=== PATIENT | male | born 1965 | race Caucasian/White ===

== ENCOUNTER 2025-02-14 02:55 | Day surgery (SDC) | payer BC, SELFPAY ==
[2025-01-28 13:56] VITALS: BMI 31.7
[2025-02-14 11:03] VITALS: BP 133/97; PULSE 85; RESP 18; TEMP 36.1; O2SAT 98; BMI 30.9
[2025-02-14] MEDS: LACTATED RINGERS 1,000 ML 150 ML IV CONT (11:11)
[2025-02-14 12:03] VITALS: BP 128/87; PULSE 70; RESP 14; O2SAT 99
--- NOTE | 2025-02-14 12:04 | WPDANESEPPF ---
Anes - Initial Pre Proc Eval Procedure: Operation Date: 02/14/25 12:30 Proposed Procedures p Screening Colonoscopy - Clark James MD Date/Time: 02/14/25 12:04 Surgeon: Clark James MD Pre Op Diagnosis: Polyp of colon Patient Data Age: 59 Gender: M Height: 1.85 m Weight: 106.4 kg Last Vital Signs Temp 97 F L 02/14/25 11:03 Pulse 85 02/14/25 11:03 Resp 18 02/14/25 11:03 BP 133/97 H 02/14/25 11:03 Pulse Ox 98 02/14/25 11:03 O2 Del Method Room Air 02/14/25 11:03 Allergies Allergy/AdvReac Type Severity Reaction Status Date / Time No Known Allergies Allergy Verified 02/14/25 11:02 Home Medications ?Medication ?Instructions ?Recorded ?Confirmed ?Type multivitamin 1 tablet PO DAILY 02/14/25 02/14/25 History Patient hx anesthesia problems: none Family hx anesthesia problems: none Results Review: All pre-operative results and documents have been reviewed as part of the pre-operative evaluation. [facility] Social History Social History Smoking status: Never smoker Alcohol intake: never Substance use: never Substance use type: does not use Living arrangements: with family Spiritual care concerns: No Anes - Eval Final PreProcedure Day of Procedure 02/14/25 12:04 Patient weight: obese Lungs: normal air movement Airway: Mallampati scale class II Neurological: alert and oriented Last oral intake: >/= 8 hours ASA classification: II Emergent: no Anesthetic plan: proceed Anesthesia type and monitoring: general GIVS and standard monitoring Results Review: All pre-operative results and documents have been reviewed as part of the pre-operative evaluation. BMI 31. Informed Consent: The patient's anesthetic plan and its attendant risks and benefits were discussed with the patient/family/POA. Questions were solicited and answers provided to the satisfaction of the patient/family/POA.
--- NOTE | 2025-02-14 12:27 | P.HP_ITS ---
History of Present Illness History of Present Illness Consent: Risks, benefits, and alternatives have been discussed and questions answered. Patient agrees to proceed with procedure. Chief complaint: Polyp of colon Narrative: Doug Alvares is a 59 year old male here for colonoscopy, father had colon cancer Review of Systems Review of Systems: All systems reviewed & are unremarkable except as noted in HPI and below PMFSH Past Medical History Medical History (Updated 02/14/25 @ 12:28 by Clark James MD) Family history of colon cancer in father Social History Social History Smoking status: Never smoker Alcohol intake: never Substance use: never Substance use type: does not use Living arrangements: with family Spiritual care concerns: No Meds Home Medications and Allergies Home Medications ?Medication ?Instructions ?Recorded ?Confirmed ?Type multivitamin 1 tablet PO DAILY 02/14/25 1 04/17/24 History Allergies Allergy/AdvReac Type Severity Reaction Status Date / Time No Known Allergies Allergy Verified 02/14/25 11:02 Vital Signs Vital Signs - 24 hr 02/14/25 11:03 Temperature 97 F L Pulse Rate 85 Respiratory Rate 18 Blood Pressure 133/97 H Pulse Oximetry 98 Oxygen Delivery Room Air Exam Const: General: comfortable and no acute distress HENMT: Face/Nose/Sinus: Normal nares present Eyes: General: appearance normal, both eyes and all related structures Neck: Neck: no JVD Resp: Auscultation: clear to auscultation bilaterally Cardio: Rate: regular rate Rhythm: regular rhythm GI: Inspection: non-distended GI Palp: Yes Soft to palpation Skin: General skin exam: normal color Psych: Mental Status: mental status grossly normal Assessment and Plan Assessment and plan (1) Family history of colon cancer in father: Code(s): Z80.0 - Family history of malignant neoplasm of digestive organs Status: Acute Assessment and Plan: colonoscopy
--- NOTE | 2025-02-14 12:39 | S_PTH ---
PATIENT: Doug Alvares LOC: [facility]#:[id number] AGE/SX: 59/M ROOM: RE02/14/[address]: Clark James MD : 1965 BED: DIS: 02/14/2025 SPEC #: [id number] RECD: 02/14/25 13:55 STATUS: LU REVasiliy #: [id number] RUT: 02/14/25 12:[address]: Clark James DEPT: [facility] Surgical RECD BY: Palak Leach ENTERED: 02/14/25 13:55 SP TYPE: Surgical OTHR DR: Harris Bethea MD Tissues: A - Colon Polypectomy B - Colon Polypectomy Procedures: Hematoxylin and Eosin Stain Gross and Microscopic Level 4
[2025-02-14 12:43] VITALS: BP 114/74; PULSE 84; RESP 20; O2SAT 99
[2025-02-14 12:53] VITALS: BP 120/76; PULSE 76; RESP 20; O2SAT 99
== END 2025-02-14 13:14 | disposition home or self-care (01) ==
PROVIDERS: PCP Emergency Medicine; Referring Provider Emergency Medicine; Visit Provider Internal Medicine Gastroenterology
PROC: 0DJD8ZZ Inspection of Lower Intestinal Tract, Via Natural or Artificial Opening Endoscopic (ICD-10-PCS; CPT 45378; principal; 2025-02-14 12:30)
DX: Z12.11 Encounter for screening for malignant neoplasm of colon (principal); D12.3 Benign neoplasm of transverse colon; K63.5 Polyp of colon; K57.30 Diverticulosis of large intestine without perforation or abscess without bleeding; K64.8 Other hemorrhoids; Z80.0 Family history of malignant neoplasm of digestive organs; E66.9 Obesity, unspecified; Z68.30 Body mass index [BMI] 30.0-30.9, adult
CPT/HCPCS: 45385; 45380; 88305; J2003; J2704; J7120